=== PATIENT | male | born 1945 | race Asian ===

== ENCOUNTER → 2020-09-22 | Day surgery (SDC) | payer MEDICARE, BC ==
[~2020-09-22] VITALS: Ht 165.1 cm; Wt 65.8 kg
[2020-09-22] VITALS (10 sets, daily range): BP systolic 119–156; BP diastolic 57–76
[~2020-09-22] MED LIST: AMLO5TAB88 MT; ATOR20TA MT; CLON0.1T MT; FENTANYL CITRATE/PF 50MCG/ML 2ML VIAL IV ONE; FENTANYL CITRATE/PF 50MCG/ML 2ML VIAL ONE; LIDOCAINE HCL 1% 20ML VIAL (Pyxis) INJ ONE; SODIUM BICARBONATE 4% (2.4MEQ) 5ML VIAL IV ONE
[2020-09-22 13:30] LABS: HEMATOCRIT 25.8 % (42.0-52.0); HEMOGLOBIN 8.7 g/dL (14.0-18.0)
== END | disposition home or self-care (01) ==
LOC: RAD 07:07
PROVIDERS: ATTEND Internal Medicine Nephrology
DX: N18.4 Chronic kidney disease, stage 4 (severe) (principal); Z79.899 Other long term (current) drug therapy; Z88.0 Allergy status to penicillin; Z98.890 Other specified postprocedural states; Z83.3 Family history of diabetes mellitus
CPT/HCPCS: 36415; 76942; 82962; 85014; 85018; 88305; 88346; 88348; J3010; J3490

== ENCOUNTER 2020-09-23 05:20 | Inpatient (IN) | payer MEDICARE, BC ==
[2020-09-23] VITALS (7 sets, daily range): BP systolic 138–169; BP diastolic 63–86
[~2020-09-23] VITALS: Ht 167.6 cm; Wt 70.8 kg
[2020-09-23] MEDS ORDERED: SODIUM CHLORIDE 0.9% 1,000 ML IV ONE (06:30)
[2020-09-23 06:37] LABS: HEMATOCRIT. 28.1 % (42.0-52.0); HEMOGLOBIN. 9.3 g/dL (14.0-18.0); MEAN CORPUSCULAR HEMOGLOBIN 30.8 pg (28.0-32.0); MEAN CORPUSCULAR VOLUME 93.2 fL (80.0-94.0); MEAN PLATELET VOLUME 8.3 fl (7.4-10.4); PLATELET 155 x1000/uL (130-400); RED BLOOD CELL COUNT 3.02 mill/uL (4.7-6.1); RED CELL DISTRIBUTION WIDTH 14.1 % (11.6-14.6)
[2020-09-23 06:38] LABS: CHLORIDE 108 mEq/L (98-107)
[2020-09-23 06:38] LABS: BG BASE EXCESS -7.7 mmol/L (-2.0-2.0); BG CARBOXYHEMOGLOBIN 0.3 % (0.5-1.5); BG DEOXYHEMOGLOBIN 2.2 % (0.0-5.0); BG FRACTION INSPIRED OXYGEN 28; BG HCO3 ACT 17.6 mmol/L (22.0-26.0); BG METHEMOGLOBIN 0.3 % (0.0-1.5); BG OXYGEN SATURATION 97.8 % (92.0-98.5); BG OXYHEMOGLOBIN 97.2 % (94.0-97.0); BG PCO2 34.7 mmHg (35.0-45.0); BG PH 7.322 (7.350-7.450); BG PO2 143.3 mmHg (75.0-100.0); BG SAMPLE SITE RIGHT RADIAL; BG TOTAL HEMOGLOBIN 9.5 g/dL (12.0-18.0); BG VENT MODE NASAL CANNULA
[2020-09-23] MEDS ORDERED: FENTANYL CITRATE/PF 50MCG/ML 2ML VIAL IV ONE (06:45)
[2020-09-23] MEDS ORDERED: ONDANSETRON HCL 4MG/2ML INJ IV ONE (06:45)
[2020-09-23 07:01] LABS: PROTHROMBIN TIME 10.7 sec (9.6-11.0)
[2020-09-23] MEDS ORDERED: LEVOFLOXACIN 500MG PREMIX 100 ML IV ONE (07:15)
[2020-09-23] MEDS ORDERED: METRONIDAZOLE 500 MG PREMIX 100 ML IV ONE (07:15)
[2020-09-23 07:25] LABS: PLATELET ESTIMATE NORMAL
[2020-09-23] MEDS ORDERED: SODIUM POLYSTYRENE SULFONATE 15 G/60 ML BOT PO NR (08:00)
[2020-09-23] MEDS ORDERED: ACETAMINOPHEN 325MG TABLET PO PRN (08:00)
[2020-09-23] MEDS ORDERED: INSULIN REGULAR (HUMULIN R) 300UNITS/3ML VIAL IV NR (08:00)
[2020-09-23] MEDS ORDERED: DEXTROSE 50% WATER 50ML SYRINGE IV NR (08:00)
[2020-09-23] MEDS ORDERED: SODIUM BICARBONATE 8.4% 1 MEQ/ML 50ML SYR IV NR (08:00)
[2020-09-23] MEDS ORDERED: SODIUM BICARBONATE 8.4% MEQ/ML 50ML VIAL IV ONE (08:32)
[2020-09-23] MEDS: MORPHINE SULFATE 4 MG/ML CPJ (NOT FOR IM USE) IV PRN ×3 (08:39→23:26)
[2020-09-23] MEDS ORDERED: ALBUMIN HUMAN 25GM/100ML (25%) IV NR (09:15)
[2020-09-23] MEDS: SODIUM BICARBONATE 150 MEQ in DEXTROSE 5% WATER 1,000 ML IV SCH ×2 (09:16→23:20)
[2020-09-23] MEDS ORDERED: DEXTROSE 50% WATER 50ML SYRINGE IV PRN (15:45)
[2020-09-23] MEDS: INSULIN LISPRO 100 UNITS/ML SUBCUT SCH ×2 (17:17→21:00)
[2020-09-23] MEDS: BLOOD SUGAR DIAGNOSTIC STRIP TEST SCH ×2 (17:32→21:18)
[2020-09-23] MEDS ORDERED: AMLO5TAB88 MT (17:59)
[2020-09-23] MEDS ORDERED: ATOR20TA MT (18:00)
[2020-09-23] MEDS ORDERED: CLON0.1T MT (18:01)
[2020-09-23 18:18] LABS: BASOPHILS % 0.1 % (0.0-2.0); HEMATOCRIT. 21.5 % (42.0-52.0); HEMOGLOBIN. 7.3 g/dL (14.0-18.0); MEAN CORPUSCULAR HEMOGLOBIN 31.1 pg (28.0-32.0); MEAN CORPUSCULAR VOLUME 91.8 fL (80.0-94.0); MONOCYTES % 8.2 % (2.0-8.0); NEUTROPHILS % 83.7 % (40.0-76.0); PLATELET 125 x1000/uL (130-400); RED BLOOD CELL COUNT 2.34 mill/uL (4.7-6.1); RED CELL DISTRIBUTION WIDTH 13.8 % (11.6-14.6)
[2020-09-23 18:43] LABS: CLARITY URINE CLEAR (CLEAR); COLOR URINE YELLOW (YELLOW); KETONES URINE NEGATIVE (NEGATIVE); LEUKOCYTE ESTERASE URINE TRACE (NEGATIVE); NITRITE URINE NEGATIVE (NEGATIVE); OCCULT BLOOD URINE 3+ (NEGATIVE); PROTEIN URINE 3+ (NEGATIVE); SPECIFIC GRAVITY URINE 1.015 (1.005-1.030); UROBILINOGEN URINE 0.2 E.U./dL (0.2-1.0)
[2020-09-23] MEDS ORDERED: EPOETIN ALFA-EPBX 10,000 UNIT/ML VIAL SUBCUT NR (21:00)
[2020-09-24] VITALS (11 sets, daily range): BP systolic 155–177; BP diastolic 77–97
[2020-09-24 00:29] LABS: HEMOGLOBIN 7.7 g/dL (14.0-18.0)
[2020-09-24] MEDS: BLOOD SUGAR DIAGNOSTIC STRIP TEST SCH ×4 (07:46→20:53)
[2020-09-24] MEDS: AMLODIPINE 10MG TABLET PO SCH ×2 (07:50→09:00)
[2020-09-24] MEDS: INSULIN LISPRO 100 UNITS/ML SUBCUT SCH ×4 (07:51→20:53)
[2020-09-24 09:02] LABS: HEMATOCRIT. 27.4 % (42.0-52.0); HEMOGLOBIN. 9.2 g/dL (14.0-18.0); MEAN CORPUSCULAR HEMOGLOBIN 29.7 pg (28.0-32.0); MEAN CORPUSCULAR VOLUME 88.3 fL (80.0-94.0); MEAN PLATELET VOLUME 8.2 fl (7.4-10.4); PLATELET 104 x1000/uL (130-400); RED CELL DISTRIBUTION WIDTH 16.5 % (11.6-14.6)
[2020-09-24 09:12] LABS: PHOSPHORUS 4.9 mg/dL (2.5-4.9)
[2020-09-24] MEDS ORDERED: CLONIDINE 0.1MG TABLET PO PRN (10:00)
[2020-09-24 11:06] LABS: PLATELET ESTIMATE SLIGHTLY DECREASED
[2020-09-24] MEDS: DILTIAZEM HCL 30MG TABLET PO SCH ×2 (13:44→21:45)
[2020-09-24] MEDS: SODIUM BICARBONATE 150 MEQ in DEXTROSE 5% WATER 1,000 ML IV SCH (16:05)
[2020-09-24] MEDS: MORPHINE SULFATE 4 MG/ML CPJ (NOT FOR IM USE) IV PRN (16:06)
[2020-09-24 16:30] LABS: HEMATOCRIT. 26.4 % (42.0-52.0); HEMOGLOBIN. 8.7 g/dL (14.0-18.0); MEAN CORPUSCULAR HEMOGLOBIN 28.9 pg (28.0-32.0); MEAN CORPUSCULAR VOLUME 87.5 fL (80.0-94.0); PLATELET 105 x1000/uL (130-400); RED BLOOD CELL COUNT 3.01 mill/uL (4.7-6.1); RED CELL DISTRIBUTION WIDTH 16.4 % (11.6-14.6)
[2020-09-24] MEDS ORDERED: SODIUM CHLORIDE 0.9% 1,000 ML IV SCH (17:00)
[2020-09-24 17:21] LABS: PLATELET ESTIMATE SLIGHTLY DECREASED
[2020-09-25] VITALS: BP 148/77
[2020-09-25] MEDS: MORPHINE SULFATE 4 MG/ML CPJ (NOT FOR IM USE) IV PRN (00:28)
[2020-09-25 04:00] VITALS: BP 157/92
[2020-09-25 06:28] LABS: INR 1.1; PARTIAL THROMBOPLASTIN TIME 35.3 sec (23.4-31.0); PROTHROMBIN TIME 11.5 sec (9.6-11.0)
[2020-09-25] MEDS: BLOOD SUGAR DIAGNOSTIC STRIP TEST SCH ×3 (06:29→17:24)
[2020-09-25] MEDS: DILTIAZEM HCL 30MG TABLET PO SCH ×3 (06:29→21:55)
[2020-09-25 06:41] LABS: PHOSPHORUS 4.8 mg/dL (2.5-4.9)
[2020-09-25] MEDS: INSULIN LISPRO 100 UNITS/ML SUBCUT SCH ×3 (07:50→17:42)
[2020-09-25 07:52] VITALS: BP 153/79
[2020-09-25 08:37] LABS: HEMATOCRIT. 28.6 % (42.0-52.0); HEMOGLOBIN. 8.5 g/dL (14.0-18.0); MEAN CORPUSCULAR HEMOGLOBIN 28.9 pg (28.0-32.0); MEAN CORPUSCULAR VOLUME 97.5 fL (80.0-94.0); MEAN PLATELET VOLUME 8.5 fl (7.4-10.4); PLATELET 74 x1000/uL (130-400); RED BLOOD CELL COUNT 2.94 mill/uL (4.7-6.1); RED CELL DISTRIBUTION WIDTH 17.5 % (11.6-14.6)
[2020-09-25] MEDS ORDERED: BISACODYL 10MG SUPP PR PRN (09:30)
[2020-09-25] MEDS: AMLODIPINE 10MG TABLET PO SCH (09:36)
[2020-09-25] MEDS: TAMSULOSIN HCL 0.4MG SR CAPSULE PO SCH (09:39)
[2020-09-25] MEDS: LACTULOSE 20G/30ML UDC PO PRN (11:48)
[2020-09-25 11:59] VITALS: BP 151/77
[2020-09-25 16:18] VITALS: BP 159/80
[2020-09-25] MEDS ORDERED: AZITHROMYCIN 500 MG in DEXT 5% WATER 250 ML IV NR (17:00)
[2020-09-25] MEDS: CLONIDINE 0.1MG TABLET PO SCH ×2 (17:21→21:56)
[2020-09-25 18:33] LABS: PLATELET ESTIMATE DECREASED
[2020-09-25 20:00] VITALS: BP 136/68
[2020-09-25] MEDS ORDERED: EPOETIN ALFA-EPBX 10,000 UNIT/ML VIAL SUBCUT NR (21:00)
[2020-09-25] MEDS: ALBUTEROL (0.083%) 2.5MG/3ML NEB HHN SCH (21:56)
[2020-09-26] VITALS (12 sets, daily range): BP systolic 121–144; BP diastolic 67–98
[2020-09-26] MEDS: ALBUTEROL (0.083%) 2.5MG/3ML NEB HHN SCH ×4 (03:13→20:14)
[2020-09-26] MEDS: DILTIAZEM HCL 30MG TABLET PO SCH ×3 (06:22→20:53)
[2020-09-26] MEDS: CLONIDINE 0.1MG TABLET PO SCH ×3 (06:22→20:53)
[2020-09-26 06:55] LABS: HEMATOCRIT. 22.8 % (42.0-52.0); HEMOGLOBIN. 7.5 g/dL (14.0-18.0); MEAN CORPUSCULAR HEMOGLOBIN 29.6 pg (28.0-32.0); MEAN CORPUSCULAR VOLUME 89.5 fL (80.0-94.0); MEAN PLATELET VOLUME 8.4 fl (7.4-10.4); PLATELET 102 x1000/uL (130-400); RED BLOOD CELL COUNT 2.55 mill/uL (4.7-6.1); RED CELL DISTRIBUTION WIDTH 16.2 % (11.6-14.6)
[2020-09-26] MEDS ORDERED: BLOOD SUGAR DIAGNOSTIC STRIP TEST SCH (07:20)
[2020-09-26 07:51] LABS: PHOSPHORUS 4.4 mg/dL (2.5-4.9)
[2020-09-26] MEDS: AMLODIPINE 10MG TABLET PO SCH (08:37)
[2020-09-26] MEDS: TAMSULOSIN HCL 0.4MG SR CAPSULE PO SCH (08:37)
[2020-09-26] MEDS ORDERED: SODIUM CHLORIDE 0.9% 1,000 ML IV SCH (10:00)
[2020-09-26] MEDS: LACTULOSE 20G/30ML UDC PO PRN (10:13)
[2020-09-26 11:25] LABS: PLATELET ESTIMATE SLIGHTLY DECREASED
[2020-09-26] MEDS: AZITHROMYCIN 250 MG in DEXT 5% WATER 250 ML IV SCH (16:18)
[2020-09-26 17:24] LABS: HEMATOCRIT. 27.3 % (42.0-52.0); HEMOGLOBIN. 8.9 g/dL (14.0-18.0); MEAN CORPUSCULAR HEMOGLOBIN 29.3 pg (28.0-32.0); MEAN CORPUSCULAR VOLUME 89.7 fL (80.0-94.0); MEAN PLATELET VOLUME 8.4 fl (7.4-10.4); PLATELET 127 x1000/uL (130-400); RED BLOOD CELL COUNT 3.04 mill/uL (4.7-6.1); RED CELL DISTRIBUTION WIDTH 16.5 % (11.6-14.6)
[2020-09-26 17:42] LABS: PLATELET ESTIMATE DECREASED
[2020-09-27] VITALS: BP_SYST 137; BP_SYST 98; BP_DIAS 55
[2020-09-27] MEDS: ALBUTEROL (0.083%) 2.5MG/3ML NEB HHN SCH ×3 (01:28→13:15)
[2020-09-27 05:17] VITALS: BP 141/77
[2020-09-27] MEDS: CLONIDINE 0.1MG TABLET PO SCH ×3 (05:36→21:13)
[2020-09-27] MEDS: DILTIAZEM HCL 30MG TABLET PO SCH ×3 (05:37→21:12)
[2020-09-27 07:38] LABS: HEMATOCRIT. 24.9 % (42.0-52.0); HEMOGLOBIN. 8.4 g/dL (14.0-18.0); MEAN CORPUSCULAR HEMOGLOBIN 29.9 pg (28.0-32.0); MEAN CORPUSCULAR VOLUME 88.6 fL (80.0-94.0); MEAN PLATELET VOLUME 8.1 fl (7.4-10.4); PLATELET 118 x1000/uL (130-400); RED BLOOD CELL COUNT 2.81 mill/uL (4.7-6.1); RED CELL DISTRIBUTION WIDTH 16.1 % (11.6-14.6)
[2020-09-27 08:00] VITALS: BP 142/93
[2020-09-27 08:06] LABS: PHOSPHORUS 4.9 mg/dL (2.5-4.9)
[2020-09-27] MEDS: AMLODIPINE 10MG TABLET PO SCH (08:57)
[2020-09-27] MEDS: TAMSULOSIN HCL 0.4MG SR CAPSULE PO SCH (08:57)
[2020-09-27] MEDS ORDERED: NA PHOS,M-B/NA PHOS,DI-BA ENEMA 118ML PR NR (09:45)
[2020-09-27 12:00] VITALS: BP 94/62
[2020-09-27] MEDS ORDERED: TRAMADOL 50MG TABLET PO PRN (15:15)
[2020-09-27] MEDS ORDERED: ACETAMINOPHEN 650MG/20.3ML UDC PO PRN (15:15)
[2020-09-27 16:00] VITALS: BP 138/70
[2020-09-27] MEDS: AZITHROMYCIN 250 MG in DEXT 5% WATER 250 ML IV SCH (16:47)
[2020-09-27 18:00] LABS: PLATELET ESTIMATE DECREASED
[2020-09-27 20:00] VITALS: BP 151/83
[2020-09-28] VITALS: BP 144/75
[2020-09-28] MEDS: ALBUTEROL (0.083%) 2.5MG/3ML NEB HHN SCH ×4 (02:37→20:10)
[2020-09-28 04:00] VITALS: BP 139/70
[2020-09-28] MEDS: DILTIAZEM HCL 30MG TABLET PO SCH ×3 (05:53→21:06)
[2020-09-28] MEDS: CLONIDINE 0.1MG TABLET PO SCH ×3 (05:53→21:06)
[2020-09-28 06:22] LABS: BASOPHILS % 0.2 % (0.0-2.0); HEMATOCRIT. 24.8 % (42.0-52.0); HEMOGLOBIN. 8.5 g/dL (14.0-18.0); LYMPHOCYTES % 7.3 % (20.0-50.0); MEAN CORPUSCULAR VOLUME 87.4 fL (80.0-94.0); NEUTROPHILS % 79.5 % (40.0-76.0); PLATELET 141 x1000/uL (130-400); RED BLOOD CELL COUNT 2.84 mill/uL (4.7-6.1); RED CELL DISTRIBUTION WIDTH 15.9 % (11.6-14.6)
[2020-09-28 06:33] LABS: PHOSPHORUS 5.3 mg/dL (2.5-4.9)
[2020-09-28 08:00] VITALS: BP 152/75
[2020-09-28] MEDS: AMLODIPINE 10MG TABLET PO SCH (09:00)
[2020-09-28] MEDS: DOCUSATE SODIUM 250MG CAPSULE PO SCH (09:00)
[2020-09-28] MEDS: TAMSULOSIN HCL 0.4MG SR CAPSULE PO SCH (09:00)
[2020-09-28] MEDS ORDERED: TRAMADOL 50MG TABLET PO PRN (10:00)
[2020-09-28 12:00] VITALS: BP 140/71
[2020-09-28 16:00] VITALS: BP 141/77
[2020-09-28] MEDS: AZITHROMYCIN 250 MG TABLET PO SCH (16:10)
[2020-09-28 20:00] VITALS: BP 145/74
[2020-09-29] VITALS: BP 131/68
[2020-09-29] MEDS: ALBUTEROL (0.083%) 2.5MG/3ML NEB HHN SCH ×4 (02:19→21:02)
[2020-09-29 04:00] VITALS: BP 136/79
[2020-09-29] MEDS: DILTIAZEM HCL 30MG TABLET PO SCH ×3 (06:24→21:29)
[2020-09-29] MEDS: CLONIDINE 0.1MG TABLET PO SCH ×3 (06:24→21:29)
[2020-09-29 06:41] LABS: BASOPHILS % 0.3 % (0.0-2.0); HEMATOCRIT. 22.9 % (42.0-52.0); HEMOGLOBIN. 7.8 g/dL (14.0-18.0); LYMPHOCYTES % 9.3 % (20.0-50.0); MEAN CORPUSCULAR HEMOGLOBIN 30.2 pg (28.0-32.0); MEAN CORPUSCULAR VOLUME 88.4 fL (80.0-94.0); MEAN PLATELET VOLUME 7.6 fl (7.4-10.4); MONOCYTES % 14.4 % (2.0-8.0); PLATELET 147 x1000/uL (130-400); RED BLOOD CELL COUNT 2.59 mill/uL (4.7-6.1); RED CELL DISTRIBUTION WIDTH 15.6 % (11.6-14.6)
[2020-09-29 06:49] LABS: PHOSPHORUS 6.1 mg/dL (2.5-4.9)
[2020-09-29 08:14] VITALS: BP 140/66
[2020-09-29] MEDS: DOCUSATE SODIUM 250MG CAPSULE PO SCH (09:12)
[2020-09-29] MEDS: AMLODIPINE 10MG TABLET PO SCH (09:12)
[2020-09-29] MEDS: TAMSULOSIN HCL 0.4MG SR CAPSULE PO SCH (09:12)
[2020-09-29 12:10] VITALS: BP 144/63
[2020-09-29 15:11] LABS: INR 1.1; PROTHROMBIN TIME 11.6 sec (9.6-11.0)
[2020-09-29 16:00] VITALS: BP 130/70
[2020-09-29 16:19] LABS: SODIUM URINE RANDOM 37 mEq/L
[2020-09-29] MEDS: AZITHROMYCIN 250 MG TABLET PO SCH (16:44)
[2020-09-29 20:00] VITALS: BP 126/64
[2020-09-29] MEDS ORDERED: EPOETIN ALFA-EPBX 10,000 UNIT/ML VIAL SUBCUT SCH (21:00)
[2020-09-29] MEDS: ZOLPIDEM TARTRATE 5MG TABLET PO PRN (21:28)
[2020-09-30] VITALS: BP 136/71
[2020-09-30] MEDS: ALBUTEROL (0.083%) 2.5MG/3ML NEB HHN SCH ×3 (01:45→21:14)
[2020-09-30 03:49] VITALS: BP 142/69
[2020-09-30] MEDS: CLONIDINE 0.1MG TABLET PO SCH ×3 (05:53→21:29)
[2020-09-30] MEDS: LACTULOSE 20G/30ML UDC PO PRN (05:53)
[2020-09-30] MEDS: DILTIAZEM HCL 30MG TABLET PO SCH ×3 (05:53→21:30)
[2020-09-30 06:59] LABS: BASOPHILS % 0.2 % (0.0-2.0); EOSINOPHILS % 1.2 % (0.0-5.0); HEMATOCRIT. 26.3 % (42.0-52.0); HEMOGLOBIN. 8.9 g/dL (14.0-18.0); LYMPHOCYTES % 11.3 % (20.0-50.0); MEAN CORPUSCULAR HEMOGLOBIN 30.1 pg (28.0-32.0); MEAN CORPUSCULAR VOLUME 88.8 fL (80.0-94.0); MEAN PLATELET VOLUME 7.8 fl (7.4-10.4); MONOCYTES % 14.5 % (2.0-8.0); NEUTROPHILS % 72.8 % (40.0-76.0); PLATELET 202 x1000/uL (130-400); RED BLOOD CELL COUNT 2.96 mill/uL (4.7-6.1)
[2020-09-30 07:07] LABS: PHOSPHORUS 6.7 mg/dL (2.5-4.9)
[2020-09-30 08:00] VITALS: BP 140/67
[2020-09-30] MEDS ORDERED: SODIUM BICARBONATE 4% (2.4MEQ) 5ML VIAL IV ONE (08:27)
[2020-09-30] MEDS: DOCUSATE SODIUM 250MG CAPSULE PO SCH (08:58)
[2020-09-30] MEDS: TAMSULOSIN HCL 0.4MG SR CAPSULE PO SCH (08:58)
[2020-09-30] MEDS: AMLODIPINE 10MG TABLET PO SCH (08:58)
[2020-09-30 11:48] VITALS: BP 137/71
[2020-09-30 16:52] LABS: CLARITY URINE CLEAR (CLEAR); COLOR URINE YELLOW (YELLOW); KETONES URINE NEGATIVE (NEGATIVE); LEUKOCYTE ESTERASE URINE NEGATIVE (NEGATIVE); NITRITE URINE NEGATIVE (NEGATIVE); OCCULT BLOOD URINE 1+ (NEGATIVE); PH URINE 5.5 (4.5-8.0); PROTEIN URINE 3+ (NEGATIVE); SPECIFIC GRAVITY URINE 1.011 (1.005-1.030); UROBILINOGEN URINE 0.2 E.U./dL (0.2-1.0)
[2020-09-30 20:00] VITALS: BP 130/83
[2020-09-30] MEDS: ZOLPIDEM TARTRATE 5MG TABLET PO PRN (21:30)
[2020-10-01] VITALS: BP 145/80
[2020-10-01] MEDS: ALBUTEROL (0.083%) 2.5MG/3ML NEB HHN SCH ×4 (03:02→21:38)
[2020-10-01 04:00] VITALS: BP 145/73
[2020-10-01] MEDS: DILTIAZEM HCL 30MG TABLET PO SCH ×3 (06:08→21:04)
[2020-10-01] MEDS: CLONIDINE 0.1MG TABLET PO SCH ×3 (06:08→21:04)
[2020-10-01 06:49] LABS: BASOPHILS % 0.4 % (0.0-2.0); EOSINOPHILS % 1.5 % (0.0-5.0); HEMATOCRIT. 25.4 % (42.0-52.0); HEMOGLOBIN. 8.5 g/dL (14.0-18.0); LYMPHOCYTES % 13.1 % (20.0-50.0); MEAN CORPUSCULAR HEMOGLOBIN 29.9 pg (28.0-32.0); MEAN CORPUSCULAR VOLUME 89.3 fL (80.0-94.0); MEAN PLATELET VOLUME 7.6 fl (7.4-10.4); MONOCYTES % 13.8 % (2.0-8.0); NEUTROPHILS % 71.2 % (40.0-76.0); PLATELET 222 x1000/uL (130-400); RED BLOOD CELL COUNT 2.84 mill/uL (4.7-6.1); RED CELL DISTRIBUTION WIDTH 15.7 % (11.6-14.6)
[2020-10-01 06:58] LABS: PHOSPHORUS 6.5 mg/dL (2.5-4.9)
[2020-10-01 08:00] VITALS: BP 138/69
[2020-10-01] MEDS: DOCUSATE SODIUM 250MG CAPSULE PO SCH (09:25)
[2020-10-01] MEDS: AMLODIPINE 10MG TABLET PO SCH (09:26)
[2020-10-01] MEDS: TAMSULOSIN HCL 0.4MG SR CAPSULE PO SCH (09:26)
[2020-10-01 12:00] VITALS: BP 138/70
[2020-10-01 16:00] VITALS: BP 118/55
[2020-10-01] MEDS: SEVELAMER CARBONATE 800 MG TABLET PO SCH (19:29)
[2020-10-01 20:19] VITALS: BP 144/66
[2020-10-01] MEDS ORDERED: EPOETIN ALFA-EPBX 10,000 UNIT/ML VIAL SUBCUT SCH (21:00)
[2020-10-01] MEDS: ZOLPIDEM TARTRATE 5MG TABLET PO PRN (21:04)
[2020-10-02] VITALS: BP 140/74
[2020-10-02] MEDS: ALBUTEROL (0.083%) 2.5MG/3ML NEB HHN SCH ×3 (02:41→16:40)
[2020-10-02 04:00] VITALS: BP 142/71
[2020-10-02] MEDS: CLONIDINE 0.1MG TABLET PO SCH ×2 (06:02→13:17)
[2020-10-02] MEDS: DILTIAZEM HCL 30MG TABLET PO SCH ×2 (06:02→13:17)
[2020-10-02 06:30] LABS: PHOSPHORUS 6.3 mg/dL (2.5-4.9)
[2020-10-02 06:36] LABS: HEMATOCRIT. 25.1 % (42.0-52.0); HEMOGLOBIN. 8.4 g/dL (14.0-18.0); MEAN CORPUSCULAR HEMOGLOBIN 30.2 pg (28.0-32.0); MEAN PLATELET VOLUME 7.7 fl (7.4-10.4); PLATELET 249 x1000/uL (130-400); RED BLOOD CELL COUNT 2.79 mill/uL (4.7-6.1); RED CELL DISTRIBUTION WIDTH 15.7 % (11.6-14.6)
[2020-10-02 08:00] VITALS: BP 142/69
[2020-10-02] MEDS: DOCUSATE SODIUM 250MG CAPSULE PO SCH (09:18)
[2020-10-02] MEDS: TAMSULOSIN HCL 0.4MG SR CAPSULE PO SCH (09:18)
[2020-10-02] MEDS: SEVELAMER CARBONATE 800 MG TABLET PO SCH ×3 (09:18→17:09)
[2020-10-02] MEDS: AMLODIPINE 10MG TABLET PO SCH (09:18)
[2020-10-02 12:00] VITALS: BP 139/63
[2020-10-02 16:00] VITALS: BP 125/60
[2020-10-02 17:06] LABS: PLATELET ESTIMATE NORMAL
[2020-10-02 18:00] VITALS: BP 139/63
== END 2020-10-02 19:05 | DRG 919 ==
LOC: ER 05:20 → EDBEDREQ 06:26 → 6WST 07:30 → EDBEDREQ 07:41 → EDBEDREQSVC 07:41 → ENRESERV 14:28
PROVIDERS: ADMIT Internal Medicine; ATTEND Internal Medicine
PROC: 30233N1 Transfusion of Nonautologous Red Blood Cells into Peripheral Vein, Percutaneous Approach (ICD-10-PCS; principal; 2020-09-23)
PROC: 30233N1 Transfusion of Nonautologous Red Blood Cells into Peripheral Vein, Percutaneous Approach (ICD-10-PCS; 2020-09-24)
PROC: 30233N1 Transfusion of Nonautologous Red Blood Cells into Peripheral Vein, Percutaneous Approach (ICD-10-PCS; 2020-09-26)
PROC: 0W9B3ZZ Drainage of Left Pleural Cavity, Percutaneous Approach (ICD-10-PCS; 2020-09-30)
DX: N99.820 Postprocedural hemorrhage of a genitourinary system organ or structure following a genitourinary system procedure (principal); J96.00 Acute respiratory failure, unspecified whether with hypoxia or hypercapnia; E43 Unspecified severe protein-calorie malnutrition; I12.0 Hypertensive chronic kidney disease with stage 5 chronic kidney disease or end stage renal disease; D62 Acute posthemorrhagic anemia; E87.2 Acidosis; J98.11 Atelectasis; E87.1 Hypo-osmolality and hyponatremia; R18.8 Other ascites; J90 Pleural effusion, not elsewhere classified; N18.5 Chronic kidney disease, stage 5; N17.9 Acute kidney failure, unspecified; N25.81 Secondary hyperparathyroidism of renal origin; G62.81 Critical illness polyneuropathy; S37.012A Minor contusion of left kidney, initial encounter; E11.22 Type 2 diabetes mellitus with diabetic chronic kidney disease; N40.0 Benign prostatic hyperplasia without lower urinary tract symptoms; J44.9 Chronic obstructive pulmonary disease, unspecified; E78.5 Hyperlipidemia, unspecified; J84.10 Pulmonary fibrosis, unspecified; Z86.16 Personal history of COVID-19; E11.42 Type 2 diabetes mellitus with diabetic polyneuropathy; E78.00 Pure hypercholesterolemia, unspecified; Z68.25 Body mass index [BMI] 25.0-25.9, adult; K59.00 Constipation, unspecified; L89.159 Pressure ulcer of sacral region, unspecified stage; Z20.822 Contact with and (suspected) exposure to COVID-19; Z63.4 Disappearance and death of family member; Z82.49 Family history of ischemic heart disease and other diseases of the circulatory system; Z83.3 Family history of diabetes mellitus; Z96.653 Presence of artificial knee joint, bilateral; Y83.8 Other surgical procedures as the cause of abnormal reaction of the patient, or of later complication, without mention of misadventure at the time of the procedure; E87.5 Hyperkalemia
CPT/HCPCS: 32555; 36415; 36600; 71045; 74018; 74176; 76604; 76700; 80048; 80053; 81003; 82040; 82375; 82533; 82728; 82805; 82962; 83036; 83540; 83550; 83605; 83615; 83735; 83880; 83935; 84100; 84300; 84443; 84484; 85014; 85018; 85025; 86850; 86900; 86920; 87426; 88108; 88312; 93005; 93306; 94640; 97110; 97116; 97162; 97166; 97530; 97535; 99291; A6261; J0456; J0885; J1815; J1956; J2270; J2405; J3010; J3490; J7030; J7040; J7060; J7070; P9016; P9047; A4315

== ENCOUNTER 2020-10-02 19:10 | Inpatient (IN) | payer MEDICARE, BC ==
[~2020-10-02] VITALS: Ht 167.6 cm; Wt 70.8 kg
[2020-10-02 19:10] VITALS: BP 152/72
[~2020-10-02 19:10] MED LIST changes: -FENTANYL CITRATE/PF 50MCG/ML 2ML VIAL IV ONE; -FENTANYL CITRATE/PF 50MCG/ML 2ML VIAL ONE; -LIDOCAINE HCL 1% 20ML VIAL (Pyxis) INJ ONE; -SODIUM BICARBONATE 4% (2.4MEQ) 5ML VIAL IV ONE
[2020-10-02 20:00] VITALS: BP 150/73
[2020-10-02] MEDS ORDERED: BISACODYL 10MG SUPP PR PRN (20:30)
[2020-10-02] MEDS ORDERED: CLONIDINE 0.1MG TABLET PO PRN (20:30)
[2020-10-02] MEDS ORDERED: DEXTROSE 50% WATER 50ML SYRINGE IV PRN (20:45)
[2020-10-02] MEDS ORDERED: LACTULOSE 20G/30ML UDC PO SCH (21:00)
[2020-10-02] MEDS: ZOLPIDEM TARTRATE 5MG TABLET PO PRN (22:01)
[2020-10-02] MEDS: CLONIDINE 0.1MG TABLET PO SCH (22:02)
[2020-10-02] MEDS: DILTIAZEM HCL 30MG TABLET PO SCH (22:02)
[2020-10-03] MEDS: ALBUTEROL (0.083%) 2.5MG/3ML NEB HHN SCH ×4 (00:47→21:30)
[2020-10-03] MEDS ORDERED: LACTULOSE 20G/30ML UDC PO PRN ×2 (03:45)
[2020-10-03] MEDS: CLONIDINE 0.1MG TABLET PO SCH ×3 (05:06→22:50)
[2020-10-03] MEDS: DILTIAZEM HCL 30MG TABLET PO SCH ×3 (05:06→21:07)
[2020-10-03 07:59] VITALS: BP 152/77
[2020-10-03 08:00] LABS: HEMATOCRIT. 25.8 % (42.0-52.0); HEMOGLOBIN. 8.5 g/dL (14.0-18.0); MEAN CORPUSCULAR HEMOGLOBIN 29.5 pg (28.0-32.0); MEAN CORPUSCULAR VOLUME 89.2 fL (80.0-94.0); MEAN PLATELET VOLUME 7.6 fl (7.4-10.4); PLATELET 297 x1000/uL (130-400); RED BLOOD CELL COUNT 2.89 mill/uL (4.7-6.1); RED CELL DISTRIBUTION WIDTH 15.5 % (11.6-14.6)
[2020-10-03 08:14] LABS: CHLORIDE 108 mEq/L (98-107)
[2020-10-03] MEDS: AMLODIPINE 10MG TABLET PO SCH (08:31)
[2020-10-03] MEDS: DOCUSATE SODIUM 250MG CAPSULE PO SCH (08:31)
[2020-10-03] MEDS: SEVELAMER CARBONATE 800 MG TABLET PO SCH ×3 (08:31→18:24)
[2020-10-03] MEDS: TAMSULOSIN HCL 0.4MG SR CAPSULE PO SCH (08:31)
[2020-10-03 10:20] LABS: NUCLEATED RED BLOOD CELLS 1 /100 WBC
[2020-10-03 10:22] LABS: PLATELET ESTIMATE NORMAL
[2020-10-03 13:37] VITALS: BP 146/63
[2020-10-03] MEDS: ALBUMIN HUMAN 25GM/100ML (25%) IV SCH (18:24)
[2020-10-03 20:00] VITALS: BP 148/76
[2020-10-03] MEDS: ZOLPIDEM TARTRATE 5MG TABLET PO PRN (21:06)
[2020-10-04] MEDS: ALBUTEROL (0.083%) 2.5MG/3ML NEB HHN SCH ×3 (03:22→21:15)
[2020-10-04] MEDS: CLONIDINE 0.1MG TABLET PO SCH ×3 (05:42→22:26)
[2020-10-04] MEDS: DILTIAZEM HCL 30MG TABLET PO SCH ×3 (05:47→21:23)
[2020-10-04 07:12] LABS: BASOPHILS % 0.5 % (0.0-2.0); EOSINOPHILS % 3.1 % (0.0-5.0); HEMATOCRIT. 24.8 % (42.0-52.0); HEMOGLOBIN. 8.1 g/dL (14.0-18.0); LYMPHOCYTES % 11.2 % (20.0-50.0); MEAN CORPUSCULAR HEMOGLOBIN 29.5 pg (28.0-32.0); MEAN PLATELET VOLUME 7.1 fl (7.4-10.4); MONOCYTES % 11.8 % (2.0-8.0); NEUTROPHILS % 73.4 % (40.0-76.0); PLATELET 313 x1000/uL (130-400); RED BLOOD CELL COUNT 2.75 mill/uL (4.7-6.1); RED CELL DISTRIBUTION WIDTH 15.5 % (11.6-14.6)
[2020-10-04 07:34] VITALS: BP 139/75
[2020-10-04 08:01] LABS: PHOSPHORUS 5.6 mg/dL (2.5-4.9)
[2020-10-04] MEDS: DOCUSATE SODIUM 250MG CAPSULE PO SCH (09:04)
[2020-10-04] MEDS: AMLODIPINE 10MG TABLET PO SCH (09:05)
[2020-10-04] MEDS: SEVELAMER CARBONATE 800 MG TABLET PO SCH ×3 (09:05→17:30)
[2020-10-04] MEDS: TAMSULOSIN HCL 0.4MG SR CAPSULE PO SCH (09:05)
[2020-10-04] MEDS: ALBUMIN HUMAN 25GM/100ML (25%) IV SCH (10:20)
[2020-10-04] MEDS ORDERED: ALBUMIN HUMAN 25GM/100ML (25%) IV NR (12:00)
[2020-10-04 20:00] VITALS: BP 149/77
[2020-10-04] MEDS ORDERED: EPOETIN ALFA-EPBX 10,000 UNIT/ML VIAL SUBCUT NR (21:00)
[2020-10-04] MEDS: ZOLPIDEM TARTRATE 5MG TABLET PO PRN (21:23)
[2020-10-04 22:37] VITALS: BP 151/78
[2020-10-05] MEDS: ALBUTEROL (0.083%) 2.5MG/3ML NEB HHN SCH ×3 (01:44→20:20)
[2020-10-05] MEDS: DILTIAZEM HCL 30MG TABLET PO SCH ×3 (06:30→21:24)
[2020-10-05] MEDS: CLONIDINE 0.1MG TABLET PO SCH ×3 (06:30→21:24)
[2020-10-05 06:32] LABS: BASOPHILS % 0.6 % (0.0-2.0); HEMATOCRIT. 26.1 % (42.0-52.0); HEMOGLOBIN. 8.5 g/dL (14.0-18.0); LYMPHOCYTES % 9.8 % (20.0-50.0); MEAN CORPUSCULAR HEMOGLOBIN 29.5 pg (28.0-32.0); MEAN CORPUSCULAR VOLUME 90.3 fL (80.0-94.0); MEAN PLATELET VOLUME 7.3 fl (7.4-10.4); MONOCYTES % 9.3 % (2.0-8.0); NEUTROPHILS % 77.3 % (40.0-76.0); PLATELET 392 x1000/uL (130-400); RED BLOOD CELL COUNT 2.89 mill/uL (4.7-6.1); RED CELL DISTRIBUTION WIDTH 15.9 % (11.6-14.6)
[2020-10-05 06:58] LABS: CHLORIDE 108 mEq/L (98-107)
[2020-10-05 07:06] LABS: FERRITIN 719 ng/mL (22-322)
[2020-10-05 07:07] LABS: PROSTRATE SPECIFIC AG TOTAL 5.42 ng/mL (0.0-4.0)
[2020-10-05 07:14] LABS: PHOSPHORUS 5.3 mg/dL (2.5-4.9)
[2020-10-05 07:16] LABS: TOTAL IRON BINDING CAPACITY 140 ug/dL (250-450)
[2020-10-05 07:18] LABS: VITAMIN B12 SERUM 951 pg/mL (211-911)
[2020-10-05 07:23] LABS: FOLIC ACID (FOLATE) SERUM > 20.00 ng/mL (>5.38)
[2020-10-05 08:03] VITALS: BP 139/74
[2020-10-05] MEDS: DOCUSATE SODIUM 250MG CAPSULE PO SCH (09:19)
[2020-10-05] MEDS: TAMSULOSIN HCL 0.4MG SR CAPSULE PO SCH (09:19)
[2020-10-05] MEDS: AMLODIPINE 2.5MG TABLET PO SCH ×2 (09:19→20:51)
[2020-10-05] MEDS: SEVELAMER CARBONATE 800 MG TABLET PO SCH ×3 (09:19→17:35)
[2020-10-05] MEDS: LACTULOSE 20G/30ML UDC PO PRN (11:45)
[2020-10-05 20:00] VITALS: BP 145/68
[2020-10-05] MEDS: ZOLPIDEM TARTRATE 5MG TABLET PO PRN (21:24)
[2020-10-05] MEDS: ACETAMINOPHEN 325MG TABLET PO PRN (21:24)
[2020-10-06] MEDS: ACETAMINOPHEN 325MG TABLET PO PRN ×2 (02:12→21:28)
[2020-10-06] MEDS: ALBUTEROL (0.083%) 2.5MG/3ML NEB HHN SCH ×4 (02:12→21:30)
[2020-10-06] MEDS: DILTIAZEM HCL 30MG TABLET PO SCH ×3 (06:04→21:15)
[2020-10-06] MEDS: CLONIDINE 0.1MG TABLET PO SCH ×3 (06:04→21:16)
[2020-10-06 06:34] LABS: HEMATOCRIT. 26.5 % (42.0-52.0); HEMOGLOBIN. 8.7 g/dL (14.0-18.0); MEAN CORPUSCULAR HEMOGLOBIN 29.6 pg (28.0-32.0); MEAN CORPUSCULAR VOLUME 90.5 fL (80.0-94.0); MEAN PLATELET VOLUME 7.3 fl (7.4-10.4); PLATELET 416 x1000/uL (130-400); RED BLOOD CELL COUNT 2.93 mill/uL (4.7-6.1); RED CELL DISTRIBUTION WIDTH 15.7 % (11.6-14.6)
[2020-10-06 07:45] LABS: PHOSPHORUS 5.3 mg/dL (2.5-4.9)
[2020-10-06 08:09] VITALS: BP 151/78
[2020-10-06] MEDS: TAMSULOSIN HCL 0.4MG SR CAPSULE PO SCH (09:23)
[2020-10-06] MEDS: AMLODIPINE 2.5MG TABLET PO SCH ×2 (09:24→21:16)
[2020-10-06] MEDS: DOCUSATE SODIUM 250MG CAPSULE PO SCH (09:24)
[2020-10-06] MEDS: SEVELAMER CARBONATE 800 MG TABLET PO SCH ×3 (09:24→16:43)
[2020-10-06 14:07] LABS: PLATELET ESTIMATE SLIGHTLY INCREASED
[2020-10-06 20:00] VITALS: BP 152/75
[2020-10-06] MEDS: ZOLPIDEM TARTRATE 5MG TABLET PO PRN (21:58)
[2020-10-07] MEDS: ALBUTEROL (0.083%) 2.5MG/3ML NEB HHN SCH ×4 (02:34→21:28)
[2020-10-07] MEDS: DILTIAZEM HCL 30MG TABLET PO SCH ×3 (06:16→21:10)
[2020-10-07] MEDS: CLONIDINE 0.1MG TABLET PO SCH ×3 (06:16→21:10)
[2020-10-07 06:45] LABS: BASOPHILS % 0.4 % (0.0-2.0); EOSINOPHILS % 2.1 % (0.0-5.0); HEMATOCRIT. 26.2 % (42.0-52.0); HEMOGLOBIN. 8.3 g/dL (14.0-18.0); LYMPHOCYTES % 8.3 % (20.0-50.0); MEAN CORPUSCULAR HEMOGLOBIN 28.5 pg (28.0-32.0); MEAN CORPUSCULAR VOLUME 89.7 fL (80.0-94.0); MEAN PLATELET VOLUME 7.4 fl (7.4-10.4); MONOCYTES % 10.4 % (2.0-8.0); NEUTROPHILS % 78.8 % (40.0-76.0); PLATELET 420 x1000/uL (130-400); RED BLOOD CELL COUNT 2.92 mill/uL (4.7-6.1)
[2020-10-07 07:15] LABS: PHOSPHORUS 5.3 mg/dL (2.5-4.9)
[2020-10-07 07:54] VITALS: BP 134/63
[2020-10-07] MEDS: DOCUSATE SODIUM 250MG CAPSULE PO SCH (08:29)
[2020-10-07] MEDS: SEVELAMER CARBONATE 800 MG TABLET PO SCH ×3 (08:43→17:23)
[2020-10-07] MEDS: AMLODIPINE 2.5MG TABLET PO SCH ×2 (08:45→21:10)
[2020-10-07] MEDS: TAMSULOSIN HCL 0.4MG SR CAPSULE PO SCH (08:46)
[2020-10-07 12:50] VITALS: BP 128/66
[2020-10-07] MEDS: LACTULOSE 20G/30ML UDC PO PRN (17:23)
[2020-10-07 20:00] VITALS: BP 145/66
[2020-10-08] MEDS: ALBUTEROL (0.083%) 2.5MG/3ML NEB HHN SCH (02:39)
[2020-10-08] MEDS: ACETAMINOPHEN 325MG TABLET PO PRN (04:47)
[2020-10-08] MEDS: CLONIDINE 0.1MG TABLET PO SCH (06:07)
[2020-10-08] MEDS: DILTIAZEM HCL 30MG TABLET PO SCH (06:07)
[2020-10-08 08:00] VITALS: BP 139/59
[2020-10-08] MEDS: SEVELAMER CARBONATE 800 MG TABLET PO SCH (08:24)
[2020-10-08] MEDS: TAMSULOSIN HCL 0.4MG SR CAPSULE PO SCH (08:25)
[2020-10-08] MEDS: AMLODIPINE 2.5MG TABLET PO SCH (08:25)
[2020-10-08] MEDS ORDERED: DOCUSATE SODIUM SUGAR FREE 100MG/10ML UDC PO SCH ×2 (09:34→10:00)
[2020-10-08 10:39] VITALS: BP 138/68
[2020-10-08] MEDS ORDERED: TAMS-11 PO (10:49)
[2020-10-08] MEDS ORDERED: AMLO2.5T45 MT (10:52)
[2020-10-08] MEDS ORDERED: DILT30TA3 PO (10:55)
[2020-10-08] MEDS ORDERED: SEVE800T8 MT (10:56)
[2020-10-08] MEDS ORDERED: LINA145C PO (11:20)
== END 2020-10-08 11:35 | disposition home health service (06) | DRG 73 ==
PROVIDERS: ADMIT Physical Medicine & Rehabilitation Spinal Cord Injury Medicine; ATTEND Internal Medicine
DX: G62.81 Critical illness polyneuropathy (principal); J18.9 Pneumonia, unspecified organism; J96.00 Acute respiratory failure, unspecified whether with hypoxia or hypercapnia; E43 Unspecified severe protein-calorie malnutrition; N17.9 Acute kidney failure, unspecified; J44.0 Chronic obstructive pulmonary disease with (acute) lower respiratory infection; J98.11 Atelectasis; R18.8 Other ascites; J91.8 Pleural effusion in other conditions classified elsewhere; N18.9 Chronic kidney disease, unspecified; E11.22 Type 2 diabetes mellitus with diabetic chronic kidney disease; I12.9 Hypertensive chronic kidney disease with stage 1 through stage 4 chronic kidney disease, or unspecified chronic kidney disease; D64.9 Anemia, unspecified; R26.9 Unspecified abnormalities of gait and mobility; N40.0 Benign prostatic hyperplasia without lower urinary tract symptoms; R53.81 Other malaise; Z96.653 Presence of artificial knee joint, bilateral; G89.29 Other chronic pain; Z79.899 Other long term (current) drug therapy; Z82.49 Family history of ischemic heart disease and other diseases of the circulatory system
CPT/HCPCS: 36415; 71045; 80048; 80053; 82306; 82550; 82607; 82728; 82746; 82962; 83540; 83550; 83735; 84100; 84134; 84153; 84443; 85025; 93970; 94640; 97110; 97112; 97116; 97162; 97166; 97530; 97535; C1893; J0885; P9047; G0103

== ENCOUNTER 2020-10-09 02:23 | Inpatient (IN) | payer MEDICARE, BC ==
[2020-10-09] VITALS (13 sets, daily range): BP systolic 143–182; BP diastolic 78–101
[~2020-10-09] VITALS: Ht 170.2 cm; Wt 72.3 kg
[~2020-10-09 02:23] MED LIST changes: +AMLO2.5T45 MT; -AMLO5TAB88 MT; -ATOR20TA MT; -CLON0.1T MT; +DILT30TA3 PO; +LINA145C PO; +SEVE800T8 MT; +TAMS-11 PO
[2020-10-09] MEDS ORDERED: SODIUM CHLORIDE 0.9% 1,000 ML IV ONE (02:45)
[2020-10-09] MEDS ORDERED: ONDANSETRON HCL 4MG/2ML INJ IV STA ×2 (02:45→07:46)
[2020-10-09] MEDS ORDERED: MORPHINE SULFATE 4 MG/ML CPJ (NOT FOR IM USE) IV STA ×2 (02:45→07:46)
[2020-10-09 03:15] LABS: HEMATOCRIT. 27.3 % (42.0-52.0); HEMOGLOBIN. 8.6 g/dL (14.0-18.0); MEAN CORPUSCULAR HEMOGLOBIN 28.9 pg (28.0-32.0); MEAN CORPUSCULAR VOLUME 91.3 fL (80.0-94.0); MEAN PLATELET VOLUME 6.9 fl (7.4-10.4); PLATELET 459 x1000/uL (130-400); RED BLOOD CELL COUNT 2.99 mill/uL (4.7-6.1); RED CELL DISTRIBUTION WIDTH 16.2 % (11.6-14.6)
[2020-10-09 03:21] LABS: CHLORIDE 103 mEq/L (98-107)
[2020-10-09 03:22] LABS: INR 1.1; PROTHROMBIN TIME 11.4 sec (9.6-11.0)
[2020-10-09 03:24] LABS: ETHANOL BLOOD < 10 mg/dL
[2020-10-09] MEDS ORDERED: CEFTRIAXONE 1 G PREMIX 50 ML IV ONE (04:45)
[2020-10-09 05:20] LABS: CLARITY URINE CLEAR (CLEAR); COLOR URINE YELLOW (YELLOW); KETONES URINE TRACE (NEGATIVE); LEUKOCYTE ESTERASE URINE NEGATIVE (NEGATIVE); NITRITE URINE NEGATIVE (NEGATIVE); OCCULT BLOOD URINE 3+ (NEGATIVE); PROTEIN URINE 3+ (NEGATIVE); SPECIFIC GRAVITY URINE 1.013 (1.005-1.030); UROBILINOGEN URINE 0.2 E.U./dL (0.2-1.0)
[2020-10-09 05:29] LABS: *BARBITURATES SCREEN URINE NEGATIVE (NEGATIVE); *BENZODIAZEPINES SCREEN URINE NEGATIVE (NEGATIVE); *COCAINE SCREEN URINE NEGATIVE (NEGATIVE); METHADONE URINE SCREEN NEGATIVE (NEGATIVE); OPIATES URINE SCREEN NEGATIVE (NEGATIVE)
[2020-10-09 05:30] LABS: *AMPHETAMINES SCREEN URINE NEGATIVE (NEGATIVE); CANNABINOID URINE SCREEN NEGATIVE (NEGATIVE); PHENCYCLIDINE URINE SCREEN NEGATIVE (NEGATIVE)
[2020-10-09 07:25] LABS: PLATELET ESTIMATE INCREASED
[2020-10-09] MEDS ORDERED: AMLODIPINE 10MG TABLET PO ONE (09:00)
[2020-10-09] MEDS ORDERED: ONDANSETRON HCL 4MG/2ML INJ IV PRN (10:45)
[2020-10-09] MEDS ORDERED: CLONIDINE 0.1MG TABLET PO PRN (10:45)
[2020-10-09] MEDS ORDERED: ACETAMINOPHEN 325MG TABLET PO PRN (10:45)
[2020-10-09] MEDS ORDERED: MORPHINE SULFATE 2 MG/ML CPJ (NOT FOR IM USE) IV PRN (10:45)
[2020-10-09] MEDS: DILTIAZEM HCL 30MG TABLET PO SCH ×2 (11:13→21:39)
[2020-10-09] MEDS ORDERED: TRAMADOL 50MG TABLET PO PRN (11:15)
[2020-10-09] MEDS: MORPHINE SULFATE 2 MG/ML CPJ (NOT FOR IM USE) IV PRN (11:16)
[2020-10-09] MEDS ORDERED: SEVELAMER CARBONATE 800 MG TABLET PO SCH (12:20)
[2020-10-09] MEDS ORDERED: LEVOFLOXACIN 500MG PREMIX 100 ML IV SCH (12:30)
[2020-10-09] MEDS: CLONIDINE 0.1MG TABLET PO SCH ×2 (13:24→21:39)
[2020-10-09] MEDS: NYSTATIN POWDER 15GM TOP SCH ×2 (13:24→21:44)
[2020-10-09] MEDS ORDERED: DESMOPRESSIN ACETATE IVPB 21 MCG in SODIUM CHLORIDE 0.9% 50 ML IV SCH (14:00)
[2020-10-09 17:33] LABS: HEMOGLOBIN 9.2 g/dL (14.0-18.0)
[2020-10-09] MEDS: TAMSULOSIN HCL 0.4MG SR CAPSULE PO SCH (21:38)
[2020-10-09] MEDS: AMLODIPINE 2.5MG TABLET PO SCH (21:39)
[2020-10-09 23:21] LABS: HEMATOCRIT 27.7 % (42.0-52.0); HEMOGLOBIN 8.8 g/dL (14.0-18.0)
[2020-10-10] VITALS (11 sets, daily range): BP systolic 147–164; BP diastolic 76–97
[2020-10-10] MEDS: CLONIDINE 0.1MG TABLET PO SCH ×3 (05:51→21:57)
[2020-10-10] MEDS: DILTIAZEM HCL 30MG TABLET PO SCH ×3 (05:51→21:58)
[2020-10-10 06:39] LABS: HEMATOCRIT. 26.4 % (42.0-52.0); HEMOGLOBIN. 8.5 g/dL (14.0-18.0); MEAN CORPUSCULAR HEMOGLOBIN 29.6 pg (28.0-32.0); MEAN CORPUSCULAR VOLUME 92.3 fL (80.0-94.0); MEAN PLATELET VOLUME 7.3 fl (7.4-10.4); PLATELET 375 x1000/uL (130-400); RED BLOOD CELL COUNT 2.86 mill/uL (4.7-6.1); RED CELL DISTRIBUTION WIDTH 15.8 % (11.6-14.6)
[2020-10-10] MEDS: AMLODIPINE 2.5MG TABLET PO SCH ×2 (07:41→21:58)
[2020-10-10] MEDS: NYSTATIN POWDER 15GM TOP SCH ×2 (07:42→22:00)
[2020-10-10] MEDS ORDERED: SODIUM BICARBONATE 4% (2.4MEQ) 5ML VIAL IV ONE (07:51)
[2020-10-10] MEDS ORDERED: IOHEXOL-300 100 ML BOTTLE ONE (07:52)
[2020-10-10] MEDS ORDERED: LIDOCAINE HCL 1% 20ML VIAL (Pyxis) INJ ONE ×2 (07:52→10:22)
[2020-10-10] MEDS ORDERED: HEPARIN 1,000 UNITS PREMIX 0 ML IV ONE (07:52)
[2020-10-10 08:01] LABS: CHLORIDE 106 mEq/L (98-107)
[2020-10-10 08:36] LABS: LDL CHOLESTEROL 50 mg/dL (5-100)
[2020-10-10 08:38] LABS: PHOSPHORUS 6.1 mg/dL (2.5-4.9)
[2020-10-10 08:41] LABS: HDL CHOLESTEROL 52 mg/dL (40-59)
[2020-10-10] MEDS ORDERED: SODIUM BICARBONATE 8.4% 1 MEQ/ML 50ML SYR IV NR (09:15)
[2020-10-10] MEDS ORDERED: CALCIUM GLUCONATE 1,000 MG in DEXT 5% WATER 90 ML IV ONE (09:15)
[2020-10-10] MEDS ORDERED: HEPARIN 1000 UNITS/ML 10ML ONE (10:22)
[2020-10-10] MEDS ORDERED: SODIUM POLYSTYRENE SULFONATE 15 G/60 ML BOT PO NR (11:00)
[2020-10-10] MEDS ORDERED: CALCIUM GLUCONATE 1GM PREMIX 50 ML IV NR (11:00)
[2020-10-10 12:01] LABS: HEMATOCRIT 28.6 % (42.0-52.0); HEMOGLOBIN 9.1 g/dL (14.0-18.0)
[2020-10-10 12:06] LABS: PLATELET ESTIMATE NORMAL
[2020-10-10] MEDS: HYDRALAZINE HCL 25MG TABLET PO SCH ×2 (13:55→21:58)
[2020-10-10 19:36] LABS: HEMATOCRIT 28.4 % (42.0-52.0)
[2020-10-10] MEDS: TAMSULOSIN HCL 0.4MG SR CAPSULE PO SCH (21:57)
[2020-10-11] VITALS (47 sets, daily range): BP systolic 129–167; BP diastolic 66–95
[2020-10-11 00:26] LABS: HEMATOCRIT 25.8 % (42.0-52.0); HEMOGLOBIN 8.2 g/dL (14.0-18.0)
[2020-10-11] MEDS: DILTIAZEM HCL 30MG TABLET PO SCH ×4 (06:00→22:22)
[2020-10-11] MEDS: CLONIDINE 0.1MG TABLET PO SCH (06:00)
[2020-10-11] MEDS: HYDRALAZINE HCL 25MG TABLET PO SCH ×3 (06:00→22:21)
[2020-10-11 07:06] LABS: HEMATOCRIT. 26.7 % (42.0-52.0); HEMOGLOBIN. 8.8 g/dL (14.0-18.0); MEAN CORPUSCULAR HEMOGLOBIN 30.1 pg (28.0-32.0); MEAN CORPUSCULAR VOLUME 90.9 fL (80.0-94.0); MEAN PLATELET VOLUME 7.4 fl (7.4-10.4); PLATELET 366 x1000/uL (130-400); RED BLOOD CELL COUNT 2.93 mill/uL (4.7-6.1); RED CELL DISTRIBUTION WIDTH 16.2 % (11.6-14.6)
[2020-10-11 07:07] LABS: PHOSPHORUS 5.9 mg/dL (2.5-4.9)
[2020-10-11] MEDS: AMLODIPINE 2.5MG TABLET PO SCH ×2 (08:07→20:22)
[2020-10-11] MEDS ORDERED: IOHEXOL-300 100 ML BOTTLE ONE ×2 (08:12→09:38)
[2020-10-11] MEDS ORDERED: LIDOCAINE HCL 1% 20ML VIAL (Pyxis) INJ ONE (08:12)
[2020-10-11] MEDS ORDERED: FENTANYL CITRATE/PF 50MCG/ML 2ML VIAL ONE (08:40)
[2020-10-11] MEDS ORDERED: FENTANYL CITRATE/PF 50MCG/ML 2ML VIAL IV ONE (09:15)
[2020-10-11] MEDS ORDERED: DIPHENHYDRAMINE 50MG/ML VIAL ONE (10:30)
[2020-10-11] MEDS ORDERED: DIPHENHYDRAMINE 50MG/ML VIAL IV SCH (10:30)
[2020-10-11] MEDS: LEVOFLOXACIN 250MG PREMIX 50 ML IV SCH (11:34)
[2020-10-11] MEDS: NYSTATIN POWDER 15GM TOP SCH ×2 (11:34→20:22)
[2020-10-11 11:53] LABS: PLATELET ESTIMATE NORMAL
[2020-10-11 12:02] LABS: HEMATOCRIT 26.5 % (42.0-52.0); HEMOGLOBIN 8.6 g/dL (14.0-18.0)
[2020-10-11] MEDS: CLONIDINE 0.2MG TABLET PO SCH ×2 (13:36→22:22)
[2020-10-11] MEDS ORDERED: LEVOFLOXACIN 250MG PREMIX 50 ML IV SCH (15:00)
[2020-10-11] MEDS ORDERED: LACTULOSE 20G/30ML UDC PO PRN (20:00)
[2020-10-11 20:19] LABS: HEMATOCRIT 26.2 % (42.0-52.0); HEMOGLOBIN 8.3 g/dL (14.0-18.0)
[2020-10-11] MEDS: PANTOPRAZOLE SODIUM 40 MG/VIAL IV SCH (20:21)
[2020-10-11] MEDS: TAMSULOSIN HCL 0.4MG SR CAPSULE PO SCH (20:21)
[2020-10-11] MEDS: ZINC SULFATE 220 MG ( 50 ) CAPSULE PO SCH (20:22)
[2020-10-11] MEDS: ZOLPIDEM TARTRATE 5MG TABLET PO PRN (20:22)
[2020-10-11] MEDS: ASCORBIC ACID 500 MG TABLET PO SCH (20:22)
[2020-10-11 20:57] LABS: HEPATITIS B SURFACE ANTIGEN NEGATIVE
[2020-10-12] VITALS (12 sets, daily range): BP systolic 116–142; BP diastolic 61–80
[2020-10-12 00:46] LABS: HEMATOCRIT 23.9 % (42.0-52.0); HEMOGLOBIN 7.7 g/dL (14.0-18.0)
[2020-10-12] MEDS: CLONIDINE 0.2MG TABLET PO SCH (05:44)
[2020-10-12] MEDS: HYDRALAZINE HCL 25MG TABLET PO SCH ×3 (05:44→21:46)
[2020-10-12] MEDS: DILTIAZEM HCL 30MG TABLET PO SCH ×3 (05:44→21:45)
[2020-10-12 07:25] LABS: HEMATOCRIT. 24.8 % (42.0-52.0); HEMOGLOBIN. 7.9 g/dL (14.0-18.0); MEAN CORPUSCULAR HEMOGLOBIN 28.9 pg (28.0-32.0); MEAN CORPUSCULAR VOLUME 90.7 fL (80.0-94.0); MEAN PLATELET VOLUME 7.5 fl (7.4-10.4); PLATELET 345 x1000/uL (130-400); RED BLOOD CELL COUNT 2.73 mill/uL (4.7-6.1)
[2020-10-12 07:31] LABS: CHLORIDE 105 mEq/L (98-107)
[2020-10-12 07:49] LABS: HEPATITIS B SURFACE AB 195.7 mIU/mL
[2020-10-12 08:00] LABS: HEPATITIS B SURFACE ANTIGEN NEGATIVE
[2020-10-12] MEDS: PANTOPRAZOLE SODIUM 40 MG/VIAL IV SCH (08:23)
[2020-10-12] MEDS: ZINC SULFATE 220 MG ( 50 ) CAPSULE PO SCH (08:24)
[2020-10-12] MEDS: ASCORBIC ACID 500 MG TABLET PO SCH (08:24)
[2020-10-12] MEDS: AMLODIPINE 2.5MG TABLET PO SCH ×2 (08:24→20:34)
[2020-10-12 08:30] LABS: HEPATITIS A AB IGM NEGATIVE (NEGATIVE)
[2020-10-12] MEDS: NYSTATIN POWDER 15GM TOP SCH ×2 (08:31→20:35)
[2020-10-12 13:12] LABS: HEMATOCRIT 24.1 % (42.0-52.0); HEMOGLOBIN 8.1 g/dL (14.0-18.0)
[2020-10-12] MEDS ORDERED: CLONIDINE 0.2MG TABLET PO SCH (14:00)
[2020-10-12] MEDS: CLONIDINE 0.1MG TABLET PO SCH ×2 (14:14→22:40)
[2020-10-12 18:42] LABS: PLATELET ESTIMATE NORMAL
[2020-10-12 20:17] LABS: HEMATOCRIT. 24.5 % (42.0-52.0); HEMOGLOBIN. 7.8 g/dL (14.0-18.0); MEAN CORPUSCULAR HEMOGLOBIN 28.9 pg (28.0-32.0); MEAN CORPUSCULAR VOLUME 90.5 fL (80.0-94.0); PLATELET 304 x1000/uL (130-400); RED BLOOD CELL COUNT 2.71 mill/uL (4.7-6.1); RED CELL DISTRIBUTION WIDTH 15.6 % (11.6-14.6)
[2020-10-12] MEDS: EPOETIN ALFA-EPBX 4,000 UNIT/ML VIAL SUBCUT SCH (20:34)
[2020-10-12] MEDS: TAMSULOSIN HCL 0.4MG SR CAPSULE PO SCH (20:34)
[2020-10-12] MEDS: ZOLPIDEM TARTRATE 5MG TABLET PO PRN (20:34)
[2020-10-12 21:20] LABS: PLATELET ESTIMATE NORMAL
[2020-10-12] MEDS: MORPHINE SULFATE 2 MG/ML CPJ (NOT FOR IM USE) IV PRN (22:56)
[2020-10-13] VITALS (12 sets, daily range): BP systolic 117–152; BP diastolic 56–81
[2020-10-13] MEDS: HYDRALAZINE HCL 25MG TABLET PO SCH ×3 (05:15→21:30)
[2020-10-13] MEDS: DILTIAZEM HCL 30MG TABLET PO SCH ×3 (05:15→21:30)
[2020-10-13] MEDS: CLONIDINE 0.1MG TABLET PO SCH ×3 (06:13→21:30)
[2020-10-13 06:43] LABS: HEMATOCRIT. 23.4 % (42.0-52.0); HEMOGLOBIN. 7.9 g/dL (14.0-18.0); MEAN CORPUSCULAR HEMOGLOBIN 30.5 pg (28.0-32.0); MEAN CORPUSCULAR VOLUME 90.5 fL (80.0-94.0); MEAN PLATELET VOLUME 7.4 fl (7.4-10.4); PLATELET 284 x1000/uL (130-400); RED BLOOD CELL COUNT 2.58 mill/uL (4.7-6.1); RED CELL DISTRIBUTION WIDTH 15.6 % (11.6-14.6)
[2020-10-13] MEDS: ZINC SULFATE 220 MG ( 50 ) CAPSULE PO SCH (08:10)
[2020-10-13] MEDS: AMLODIPINE 2.5MG TABLET PO SCH ×2 (08:10→21:31)
[2020-10-13] MEDS: ASCORBIC ACID 500 MG TABLET PO SCH (08:10)
[2020-10-13] MEDS: NYSTATIN POWDER 15GM TOP SCH ×2 (08:10→21:31)
[2020-10-13] MEDS: PANTOPRAZOLE 40MG DR TABLET PO SCH (10:06)
[2020-10-13] MEDS: LEVOFLOXACIN 250MG PREMIX 50 ML IV SCH (10:08)
[2020-10-13 16:15] LABS: PLATELET ESTIMATE NORMAL
[2020-10-13] MEDS: TAMSULOSIN HCL 0.4MG SR CAPSULE PO SCH (21:29)
[2020-10-13] MEDS: ZOLPIDEM TARTRATE 5MG TABLET PO PRN (21:30)
[2020-10-14] VITALS (13 sets, daily range): BP systolic 113–150; BP diastolic 51–79
[2020-10-14] MEDS: PANTOPRAZOLE 40MG DR TABLET PO SCH (06:26)
[2020-10-14] MEDS: CLONIDINE 0.1MG TABLET PO SCH ×3 (06:27→22:00)
[2020-10-14] MEDS: DILTIAZEM HCL 30MG TABLET PO SCH ×3 (06:27→23:07)
[2020-10-14] MEDS: HYDRALAZINE HCL 25MG TABLET PO SCH ×3 (06:27→23:07)
[2020-10-14] MEDS: AMLODIPINE 2.5MG TABLET PO SCH ×2 (08:00→21:15)
[2020-10-14] MEDS: ASCORBIC ACID 500 MG TABLET PO SCH (08:00)
[2020-10-14] MEDS: NYSTATIN POWDER 15GM TOP SCH ×2 (08:00→21:14)
[2020-10-14] MEDS: ZINC SULFATE 220 MG ( 50 ) CAPSULE PO SCH (08:00)
[2020-10-14 08:43] LABS: HEMATOCRIT 24.7 % (42.0-52.0); HEMOGLOBIN 8.1 g/dL (14.0-18.0); MEAN CORPUSCULAR HEMOGLOBIN 29.7 pg (28.0-32.0); MEAN CORPUSCULAR VOLUME 90.5 fL (80.0-94.0); PLATELET 284 x1000/uL (130-400); RED BLOOD CELL COUNT 2.73 mill/uL (4.7-6.1); RED CELL DISTRIBUTION WIDTH 15.5 % (11.6-14.6)
[2020-10-14] MEDS ORDERED: LORAZEPAM 1MG TABLET PO SCH (09:00)
[2020-10-14] MEDS ORDERED: LACTULOSE 20G/30ML UDC PO NR (11:15)
[2020-10-14] MEDS ORDERED: MORPHINE SULFATE 2 MG/ML CPJ (NOT FOR IM USE) IV PRN (18:15)
[2020-10-14] MEDS: EPOETIN ALFA-EPBX 4,000 UNIT/ML VIAL SUBCUT SCH (21:15)
[2020-10-14] MEDS: TAMSULOSIN HCL 0.4MG SR CAPSULE PO SCH (21:15)
[2020-10-15] VITALS (26 sets, daily range): BP systolic 111–155; BP diastolic 62–93
[2020-10-15] MEDS: CLONIDINE 0.1MG TABLET PO SCH ×3 (05:33→22:18)
[2020-10-15] MEDS: DILTIAZEM HCL 30MG TABLET PO SCH ×3 (05:33→22:18)
[2020-10-15] MEDS: PANTOPRAZOLE 40MG DR TABLET PO SCH (06:04)
[2020-10-15] MEDS: HYDRALAZINE HCL 25MG TABLET PO SCH ×3 (06:04→22:18)
[2020-10-15] MEDS: AMLODIPINE 2.5MG TABLET PO SCH ×2 (08:51→20:23)
[2020-10-15] MEDS: ASCORBIC ACID 500 MG TABLET PO SCH (08:52)
[2020-10-15] MEDS: ZINC SULFATE 220 MG ( 50 ) CAPSULE PO SCH (08:52)
[2020-10-15] MEDS: NYSTATIN POWDER 15GM TOP SCH ×2 (08:57→20:23)
[2020-10-15] MEDS: TAMSULOSIN HCL 0.4MG SR CAPSULE PO SCH (20:23)
[2020-10-16] VITALS (13 sets, daily range): BP systolic 102–148; BP diastolic 57–80
[2020-10-16] MEDS: PANTOPRAZOLE 40MG DR TABLET PO SCH (06:06)
[2020-10-16] MEDS: HYDRALAZINE HCL 25MG TABLET PO SCH ×3 (06:06→21:33)
[2020-10-16] MEDS: DILTIAZEM HCL 30MG TABLET PO SCH ×3 (06:07→21:33)
[2020-10-16] MEDS: CLONIDINE 0.1MG TABLET PO SCH ×3 (06:36→22:49)
[2020-10-16] MEDS: AMLODIPINE 2.5MG TABLET PO SCH ×2 (08:14→20:51)
[2020-10-16] MEDS: ASCORBIC ACID 500 MG TABLET PO SCH (08:14)
[2020-10-16] MEDS: ZINC SULFATE 220 MG ( 50 ) CAPSULE PO SCH (08:14)
[2020-10-16] MEDS: NYSTATIN POWDER 15GM TOP SCH ×2 (08:14→20:51)
[2020-10-16] MEDS ORDERED: LORAZEPAM 1MG TABLET PO PRN (09:45)
[2020-10-16 09:59] LABS: BG CARBOXYHEMOGLOBIN 0.2 % (0.5-1.5); BG DEOXYHEMOGLOBIN 5.3 % (0.0-5.0); BG HCO3 ACT 28.8 mmol/L (22.0-26.0); BG OXYGEN SATURATION 94.7 % (92.0-98.5); BG OXYHEMOGLOBIN 94.5 % (94.0-97.0); BG PCO2 39.3 mmHg (35.0-45.0); BG PH 7.483 (7.350-7.450); BG PO2 68.7 mmHg (75.0-100.0); BG SAMPLE SITE RIGHT BRACHIAL; BG TOTAL HEMOGLOBIN 9.7 g/dL (12.0-18.0); BG VENT MODE ROOM AIR
[2020-10-16] MEDS: TAMSULOSIN HCL 0.4MG SR CAPSULE PO SCH (20:51)
[2020-10-17] VITALS (34 sets, daily range): BP systolic 101–155; BP diastolic 53–99
[2020-10-17 06:08] LABS: BASOPHILS % 0.5 % (0.0-2.0); EOSINOPHILS % 2.5 % (0.0-5.0); HEMATOCRIT. 21.7 % (42.0-52.0); HEMOGLOBIN. 7.4 g/dL (14.0-18.0); LYMPHOCYTES % 8.7 % (20.0-50.0); MEAN CORPUSCULAR VOLUME 87.6 fL (80.0-94.0); MEAN PLATELET VOLUME 7.4 fl (7.4-10.4); MONOCYTES % 10.5 % (2.0-8.0); NEUTROPHILS % 77.8 % (40.0-76.0); PLATELET 253 x1000/uL (130-400); RED BLOOD CELL COUNT 2.48 mill/uL (4.7-6.1); RED CELL DISTRIBUTION WIDTH 14.9 % (11.6-14.6)
[2020-10-17 06:11] LABS: PHOSPHORUS 3.8 mg/dL (2.5-4.9)
[2020-10-17] MEDS: PANTOPRAZOLE 40MG DR TABLET PO SCH (06:22)
[2020-10-17] MEDS: HYDRALAZINE HCL 25MG TABLET PO SCH ×2 (06:22→13:23)
[2020-10-17] MEDS: CLONIDINE 0.1MG TABLET PO SCH ×2 (06:40→13:23)
[2020-10-17] MEDS: DILTIAZEM HCL 30MG TABLET PO SCH ×3 (06:40→20:42)
[2020-10-17] MEDS ORDERED: HEPARIN 1000 UNITS/ML 10ML ONE (07:47)
[2020-10-17] MEDS ORDERED: LIDOCAINE HCL 1% 20ML VIAL (Pyxis) INJ ONE (07:47)
[2020-10-17] MEDS ORDERED: CLINDAMYCIN 600MG PREMIX 50 ML IV ONE (08:00)
[2020-10-17] MEDS ORDERED: FENTANYL CITRATE/PF 50MCG/ML 2ML VIAL ONE (08:09)
[2020-10-17] MEDS ORDERED: FENTANYL CITRATE/PF 50MCG/ML 2ML VIAL IV SCH (08:30)
[2020-10-17] MEDS ORDERED: FENTANYL CITRATE/PF 50MCG/ML 2ML VIAL IV ONE (08:30)
[2020-10-17] MEDS: NYSTATIN POWDER 15GM TOP SCH ×2 (08:57→20:43)
[2020-10-17] MEDS: ZINC SULFATE 220 MG ( 50 ) CAPSULE PO SCH (08:57)
[2020-10-17] MEDS: ASCORBIC ACID 500 MG TABLET PO SCH (08:57)
[2020-10-17] MEDS: AMLODIPINE 2.5MG TABLET PO SCH (08:59)
[2020-10-17 11:38] LABS: BG BASE EXCESS 3.1 mmol/L (-2.0-2.0); BG CARBOXYHEMOGLOBIN 0.7 % (0.5-1.5); BG DEOXYHEMOGLOBIN 8.8 % (0.0-5.0); BG FRACTION INSPIRED OXYGEN 21; BG HCO3 ACT 27.1 mmol/L (22.0-26.0); BG METHEMOGLOBIN 0.2 % (0.0-1.5); BG OXYGEN SATURATION 91.1 % (92.0-98.5); BG OXYHEMOGLOBIN 90.3 % (94.0-97.0); BG PCO2 38.9 mmHg (35.0-45.0); BG PH 7.461 (7.350-7.450); BG PO2 55.6 mmHg (75.0-100.0); BG SAMPLE SITE LEFT RADIAL; BG TOTAL HEMOGLOBIN 8.4 g/dL (12.0-18.0); BG VENT MODE ROOM AIR
[2020-10-17 19:36] LABS: HEMATOCRIT 28.7 % (42.0-52.0); HEMOGLOBIN 9.8 g/dL (14.0-18.0)
[2020-10-17] MEDS: TAMSULOSIN HCL 0.4MG SR CAPSULE PO SCH (20:41)
[2020-10-17] MEDS: EPOETIN ALFA-EPBX 4,000 UNIT/ML VIAL SUBCUT SCH (20:42)
== END 2020-10-17 23:56 | disposition home or self-care (01) | DRG 907 ==
LOC: ER 02:23 → 3WST 05:21 → ENRESERV 07:29 → EDBEDREQ 07:58
PROVIDERS: ADMIT Internal Medicine; ATTEND Internal Medicine
PROC: 30233N1 Transfusion of Nonautologous Red Blood Cells into Peripheral Vein, Percutaneous Approach (ICD-10-PCS; principal; 2020-10-09)
PROC: 02HV33Z Insertion of Infusion Device into Superior Vena Cava, Percutaneous Approach (ICD-10-PCS; 2020-10-10)
PROC: B548ZZA Ultrasonography of Superior Vena Cava, Guidance (ICD-10-PCS; 2020-10-10)
PROC: 5A1D70Z Performance of Urinary Filtration, Intermittent, Less than 6 Hours Per Day (ICD-10-PCS; 2020-10-10)
PROC: 04LA3DZ Occlusion of Left Renal Artery with Intraluminal Device, Percutaneous Approach (ICD-10-PCS; 2020-10-11)
PROC: B4171ZZ Fluoroscopy of Left Renal Artery using Low Osmolar Contrast (ICD-10-PCS; 2020-10-11)
PROC: 5A1D70Z Performance of Urinary Filtration, Intermittent, Less than 6 Hours Per Day (ICD-10-PCS; 2020-10-12)
PROC: 5A1D70Z Performance of Urinary Filtration, Intermittent, Less than 6 Hours Per Day (ICD-10-PCS; 2020-10-15)
PROC: 0JH63XZ Insertion of Tunneled Vascular Access Device into Chest Subcutaneous Tissue and Fascia, Percutaneous Approach (ICD-10-PCS; 2020-10-17)
PROC: 02HV33Z Insertion of Infusion Device into Superior Vena Cava, Percutaneous Approach (ICD-10-PCS; 2020-10-17)
PROC: B5181ZA Fluoroscopy of Superior Vena Cava using Low Osmolar Contrast, Guidance (ICD-10-PCS; 2020-10-17)
PROC: B548ZZA Ultrasonography of Superior Vena Cava, Guidance (ICD-10-PCS; 2020-10-17)
PROC: 02PYX3Z Removal of Infusion Device from Great Vessel, External Approach (ICD-10-PCS; 2020-10-17)
DX: N99.840 Postprocedural hematoma of a genitourinary system organ or structure following a genitourinary system procedure (principal); K66.1 Hemoperitoneum; J96.00 Acute respiratory failure, unspecified whether with hypoxia or hypercapnia; N18.6 End stage renal disease; N17.0 Acute kidney failure with tubular necrosis; D62 Acute posthemorrhagic anemia; I12.0 Hypertensive chronic kidney disease with stage 5 chronic kidney disease or end stage renal disease; J98.11 Atelectasis; G62.81 Critical illness polyneuropathy; I31.3 Pericardial effusion (noninflammatory); J90 Pleural effusion, not elsewhere classified; E44.1 Mild protein-calorie malnutrition; R18.8 Other ascites; E11.319 Type 2 diabetes mellitus with unspecified diabetic retinopathy without macular edema; M17.10 Unilateral primary osteoarthritis, unspecified knee; N28.1 Cyst of kidney, acquired; N40.0 Benign prostatic hyperplasia without lower urinary tract symptoms; Z86.11 Personal history of tuberculosis; Z91.15 Patient's noncompliance with renal dialysis; Z96.653 Presence of artificial knee joint, bilateral; J44.9 Chronic obstructive pulmonary disease, unspecified; J84.10 Pulmonary fibrosis, unspecified; E11.22 Type 2 diabetes mellitus with diabetic chronic kidney disease; Z86.16 Personal history of COVID-19; E78.00 Pure hypercholesterolemia, unspecified; Z88.0 Allergy status to penicillin; G89.29 Other chronic pain; K59.00 Constipation, unspecified; Z79.899 Other long term (current) drug therapy; Z82.49 Family history of ischemic heart disease and other diseases of the circulatory system; Z83.3 Family history of diabetes mellitus; Z99.2 Dependence on renal dialysis; F32.9 Major depressive disorder, single episode, unspecified; K21.9 Gastro-esophageal reflux disease without esophagitis; E11.42 Type 2 diabetes mellitus with diabetic polyneuropathy; Z68.25 Body mass index [BMI] 25.0-25.9, adult; X58.XXXA Exposure to other specified factors, initial encounter; Y93.89 Activity, other specified; Y92.89 Other specified places as the place of occurrence of the external cause; Y99.8 Other external cause status; Z87.01 Personal history of pneumonia (recurrent); G47.33 Obstructive sleep apnea (adult) (pediatric); D63.8 Anemia in other chronic diseases classified elsewhere; E87.5 Hyperkalemia; Y83.8 Other surgical procedures as the cause of abnormal reaction of the patient, or of later complication, without mention of misadventure at the time of the procedure; Y82.8 Other medical devices associated with adverse incidents
CPT/HCPCS: 36251; 36415; 36558; 36589; 36600; 71045; 71250; 74018; 74176; 75898; 76937; 77001; 80048; 80053; 80061; 80305; 80320; 81003; 82375; 82805; 82962; 83605; 84100; 84443; 84484; 85014; 85018; 85025; 85027; 86705; 86706; 86709; 86803; 86850; 86900; 86920; 87340; 87426; 93005; 93970; 94618; 97116; 97162; 97166; 97530; 97535; 99152; 99153; 99285; C1725; C1750; C1757; C1760; C1769; C9113; J0610; J0696; J0885; J1200; J1644; J1956; J2270; J2405; J2597; J3010; J3490; J7030; P9016; Q9967; U0003; G0480; G0500